=== PATIENT | female | born 1960 | race Caucasian/White ===

== ENCOUNTER 2017-11-01 18:55 | Emergency (ER) | payer SELFPAY ==
[~2017-11-01] VITALS: Ht 152.4 cm; Wt 86.2 kg
[2017-11-01 18:55] VITALS: BP 157/93
--- NOTE | 2017-11-01 18:56 | NUR ---
PT BIBA BLS TO BED 5
[2017-11-01] MEDS ORDERED: [UNRECOGNIZED DRUG - OTHER] PO (19:18)
[2017-11-01] MEDS ORDERED: [UNRECOGNIZED DRUG - OTHER] PO (19:18)
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
--- NOTE | 2017-11-01 19:37 | NUR ---
REPORT RECEIVED FROM EMMA RN
[2017-11-01] MEDS ORDERED: BACITRACIN OINT 500 UNITS/GM PKT TP ONE (20:05)
--- NOTE | 2017-11-01 20:13 | NUR ---
TALKED WITH PATIENT AND HER SON, PT WANTS TO GO HOME, SHE DOES NOT WANT XRAYS OR ANYTHING ELSE. STATES SHE WILL COME BACK TO ER IF SHE FEELS WORSE LATER. DR SUMNER MADE AWARE
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
[2017-11-01 20:27] VITALS: BP 166/72
== END 2017-11-01 20:27 | disposition home or self-care (01) ==
LOC: MED 18:55
DX: S40.022A Contusion of left upper arm, initial encounter (principal); S30.1XXA Contusion of abdominal wall, initial encounter; S60.811A Abrasion of right wrist, initial encounter; S80.812A Abrasion, left lower leg, initial encounter; E11.9 Type 2 diabetes mellitus without complications; Z79.899 Other long term (current) drug therapy; V43.52XA Car driver injured in collision with other type car in traffic accident, initial encounter; Y93.I9 Activity, other involving external motion; Y92.488 Other paved roadways as the place of occurrence of the external cause; Y99.8 Other external cause status
CPT/HCPCS: 99283